=== PATIENT | female | born 1995 | race Two or more races ===

== ENCOUNTER 2018-12-24 01:31 | Inpatient (IN) | payer MEDICAID ==
[~2018-12-24] VITALS: Ht 167.6 cm; Wt 76.3 kg
[2018-12-24 02:32] LABS: Basophils # (auto) 0 uL; Basophils % (auto) 0.4 % (0.0-2.0); Eosinophils # (auto) 0 uL; Eosinophils % (auto) 0.6 % (0.0-7.0); Hematocrit 37.4 % (36.0-46.0); Hemoglobin 12.7 g/dL (12.2-16.2); Lymphocytes # (auto) 1.1 uL; Lymphocytes % (auto) 15.9 % (10.0-50.0); Mean Corpuscular Hemoglobin 30.3 pg (28.0-32.0); Monocytes # (auto) 0.4 uL; Monocytes % (auto) 5.4 % (0.0-12.0); Neutrophils # (auto) 5.5 uL; Neutrophils % (auto) 77.7 % (37.0-80.0); Platelet Count (auto) 229 10^3/uL (140-450); Red Cell Distribution Width 12.1 % (11.8-14.3)
[2018-12-24 02:48] LABS: Alanine Aminotransferase 14 U/L (13-56); Albumin 3.6 g/dL (3.4-5.0); Anion Gap 8 (5-15); Aspartate Aminotransferase 16 U/L (15-37); BUN/Creatinine Ratio 7.9; Blood Urea Nitrogen 6 mg/dL (7-18); Calcium 7.7 mg/dL (8.5-10.1); Carbon Dioxide 19 mmol/L (21-32); Chloride 109 mmol/L (98-107); GFR African American 120 mL/min; GFR Non-African American 99 mL/min; Glucose 104 mg/dL (74-106); Potassium 3.6 mmol/L (3.5-5.1); Sodium 136 mmol/L (136-145)
[2018-12-24 02:50] LABS: Alkaline Phosphatase 100 U/L (45-117); Bilirubin, Total 0.3 mg/dL (0.2-1.0); Total Protein 6.9 g/dL (6.4-8.2)
[2018-12-24] MEDS ORDERED: ONDANSETRON HCL 4 MG/2 ML VIAL IV PRN (05:15)
[2018-12-24] MEDS ORDERED: LORazepam 2MG/ML-1ML VIAL IV PRN (05:15)
[2018-12-24] MEDS ORDERED: TEMAZEPAM 15 MG CAP PO PRN (05:15)
[2018-12-24] MEDS ORDERED: ACETAMINOPHEN 500 MG TAB PO ONE (06:00)
[2018-12-24 08:41] LABS: Urine Bacteria FEW /hpf (None Seen); Urine Blood 1+ /uL (Negative); Urine Mucus FEW (None Seen); Urine Specific Gravity 1.006 (1.001-1.035); Urine WBC 3 /hpf (0 - 5)
--- NOTE | 2018-12-24 08:57 | NUR ---
MS admit from ER JOSS SPENCER admitted to [facility] after SBAR received. Patient oriented to primary RN, unit, room, bed, and unit policies regarding patient care and visiting hours. Patient weighed by bedscale and encouraged to call if they need something. All questions and concerns addressed, patient verbalized understanding.
[2018-12-24 09:00] VITALS: BP 109/69
[2018-12-24 09:06] LABS: Alcohol, Urine < 3.0 mg/dL (0-5); Amphetamine Screen, Urine NEGATIVE (NEGATIVE); Barbiturate Scree,Urine NEGATIVE (NEGATIVE); Benzodiazephine Screen, Urine NEGATIVE (NEGATIVE); Cannabinoid Screen, Urine POSITIVE (NEGATIVE); Cocaine Screen, Urine NEGATIVE (NEGATIVE); Opiate Scree,Urine POSITIVE (NEGATIVE); Phencyclidine Screen, Urine NEGATIVE (NEGATIVE)
[2018-12-24] MEDS: clonazePAM 0.5 MG TAB PO SCH ×2 (09:54→22:03)
[2018-12-24] MEDS: FAMOTIDINE 20 MG TAB PO SCH ×2 (09:54→22:02)
[2018-12-24] MEDS: PARoxetine 20 MG TAB PO SCH (09:54)
[2018-12-24] MEDS ORDERED: FLUoxetine HCL 20 MG CAP PO SCH (10:00)
[2018-12-24 13:00] VITALS: BP 99/58
--- NOTE | 2018-12-24 14:00 | NUR ---
Family member at bedside.
[2018-12-24] MEDS: ACETAMINOPHEN 325 MG TAB PO PRN (14:22)
[2018-12-24] MEDS ORDERED: LEVO25TA6 PO (14:26)
[2018-12-24] MEDS ORDERED: PAR20T GT (14:29)
[2018-12-24] MEDS ORDERED: QUET300T14 PO (14:29)
[2018-12-24] MEDS ORDERED: CLON2TAB PO (14:29)
[2018-12-24] MEDS ORDERED: CLON1TAB10 PO (14:29)
--- NOTE | 2018-12-24 15:30 | NUR ---
ELECTROENCEPHALOGRAM COMPLETED AT BEDSIDE. EVERETT SARAH NOTIFIED.
[2018-12-24] MEDS ORDERED: KETOROLAC TROMETH 30 MG/ML 1ML VIAL IV PRN (16:15)
[2018-12-24] MEDS: LIDOCAINE VISCOUS 2% 15ML UD MT PRN ×2 (16:37→22:40)
[2018-12-24 17:00] VITALS: BP 118/80
--- NOTE | 2018-12-24 19:44 | NUR ---
paged Cassy shine and left message in regards to home med Seroquel being discontinued.
--- NOTE | 2018-12-24 19:51 | NUR ---
BRYANNA return call placed order to continue home med seroquel 300mg po qhs. dose confirmed by patient and appears as such within external pharmacy record.
--- NOTE | 2018-12-24 20:00 | NUR ---
open note assumed care of pt. upon entering room pt awake, alert and oriented x4. pt on room air no distress noted or expressed. pt denies any pain at this time. pt bed rails padded rt seizure activity. pt updated on plan of care. no questions from pt at this time. pt bed locked, low and 2x rails up. call light in reach, will round on pt q1hr and prn.
[2018-12-24 22:00] VITALS: BP 123/77
[2018-12-24] MEDS ORDERED: QUEtiapine FUMARATE 100 MG TAB PO SCH ×2 (22:00)
[2018-12-24] MEDS: LACOSAMIDE 50 MG TAB PO SCH (22:03)
[2018-12-25 05:00] VITALS: BP 107/69
--- NOTE | 2018-12-25 08:00 | NUR ---
ASSESSMENT NOTE PATIENT IS ALERT ORIENTED X4, RESTING IN BED COMFORTABLY, NO DISTRESS NOTED, SIDE RAILS ARE PADDED, SELF REPOSITION NEEDED, FALL RISK PRECAUTIONS AT ALL TIMES, PATIENT CONTINUE TO HAVE RT SIDE TONGUE SWOLLEN DUE TO TONGUE BITE DURING THE SEIZURE, REFUSED LIDOCAINE AT THIS TIME, PAIN 10/12, CALL LIGHT WITHIN REACH
[2018-12-25] MEDS: FAMOTIDINE 20 MG TAB PO SCH (08:59)
[2018-12-25] MEDS: clonazePAM 0.5 MG TAB PO SCH (08:59)
[2018-12-25] MEDS: LACOSAMIDE 50 MG TAB PO SCH (08:59)
[2018-12-25 09:00] VITALS: BP 100/67
[2018-12-25] MEDS: PARoxetine 20 MG TAB PO SCH (09:00)
--- NOTE | 2018-12-25 09:00 | NUR ---
PATIENT CONTINUE STABLE, NO SEIZURE ACTIVITY NOTED, STATED < I NEVER HAD A SEIZURE BEFORE>, EDUCATION GIVEN TO PT REGARDING SEIZURE OF COMPLYING TO TAKE HER MEDICATIONS ON TIME, AND NEVER SKIP IT, AND KEEP HER ALL APPOINTMENT WITH HER NEUROLOGIST AND PRIMARY MD
[2018-12-25] MEDS: ACETAMINOPHEN 325 MG TAB PO PRN (09:07)
--- NOTE | 2018-12-25 10:24 | NUR ---
OUT TO MRI VIA WHEELCHAIR, NO DISTRESS NOTED.
--- NOTE | 2018-12-25 10:29 | NUR ---
assessment Patient is a 23 year old female who is alert and oriented. Patients cognitive abilities are intact. Prior to admission patient lived home with family and functioned independently. Patient informed me she is able to care for her own ADLs. Per patient she will return home to her prior living arrangements post discharge and family will transport her home. Patients PCP is Dr Carmichael in [place]. Patient informed me this was her first seizure. Patient may benefit from home health safety and medication management on discharge. Patient will return home with her parents. Patient has good family support. I informed patient she has a right to speak to a long term care social worker regarding all care. I informed patient she has a right to participate in any and all discharge planning. Patient does not have a POA and advanced directive. I have offered patient information on POA and advanced directives. I informed the patient the advantages and benefits of having an Advanced Directive. Patient verbalized understanding and agreed to discharge plan. Addendum: 12/26/18 at 1035 by Sujata SILVERMAN Amended: Links added.
--- NOTE | 2018-12-25 10:50 | NUR ---
PT IS BACK TO HER ROOM, NO DISTRESS NOTED
[2018-12-25 13:00] VITALS: BP 123/78
--- NOTE | 2018-12-25 14:46 | NUR ---
D/C Planning Per SS consult for home health safety evaluation and resources for cannabinoid support programs. Pt mother Ave was at bedside when information was given to Pt regarding home health and support programs. Pt refused service for home health and resources. Informed EVERETT Zepeda.
--- NOTE | 2018-12-25 15:02 | NUR ---
BRAZER ASSEMBLER AT BED SIDE, PATIENT DID REFUSES ALL THE HELP RESOURCES OFFERED TO HER, PATIENT MOM AT BED SIDE AWARE
--- NOTE | 2018-12-25 15:10 | NUR ---
DR LORA AT BED SIDE FOLLOWING UP ON PT WITH DISCHARGE HOME INSTRUCTION, PT VERBALIS UNDERSTANDING, PT'S MOM AWARE AT BED SIDE
[2018-12-25] MEDS ORDERED: LACO50TA2 PO ×2 (15:14→15:15)
--- NOTE | 2018-12-25 15:20 | NUR ---
DR LORA CALLED IN PT RX TO HER [facility]
--- NOTE | 2018-12-25 16:15 | NUR ---
FAMILY PATIENT'S BROTHER AT BED SIDE
--- NOTE | 2018-12-25 16:40 | NUR ---
DISCHARGE INSTRUCTION GIVEN TO PT, MADE AWARE TO OBTAIN A REFERRAL AND FOLLOW UP WITH DR ZAVALA IN 3 MONTH, ENCOURAGE PT TO CABIN SERVICE AGENT HER EDUCATIONS FROM JACK CRUZ
--- NOTE | 2018-12-25 16:41 | NUR ---
Discharge instructions given as ordered. Encourage to follow up with PMD as instructed. All questions and concerns addressed. Patient verbalized understanding. Medication reconciliation form completed and copy given to patient. IV removed with catheter intact, pressure dressing applied, Patient refused to be wheeled out with the wheelchair stated i will walk with my brother, with all personal belongings, accompanied by staff and family member. No distress noted at time of departure.
== END 2018-12-25 16:41 | disposition home or self-care (01) | DRG 53 ==
LOC: EDBD 01:31 → ER 01:35 → OVERFLOW 01:36 → CENTRAL 09:04
PROVIDERS: ADMIT Nurse Practitioner; ATTEND Hospitalist
DX: G40.909 Epilepsy, unspecified, not intractable, without status epilepticus (principal); F20.9 Schizophrenia, unspecified; F31.9 Bipolar disorder, unspecified; Z83.3 Family history of diabetes mellitus; Z88.8 Allergy status to other drugs, medicaments and biological substances; Z79.899 Other long term (current) drug therapy
CPT/HCPCS: 36415; 70450; 70551; 72125; 80053; 80307; 81001; 81025; 85025; 95819; G0378

== ENCOUNTER 2020-06-03 16:04 | Emergency (ER) | payer MEDICAID ==
[~2020-06-03] VITALS: Ht 165.1 cm; Wt 74.8 kg
[~2020-06-03 16:04] MED LIST: CLON1TAB10 PO; CLON2TAB PO; LACO50TA2 PO; LEVO25TA6 PO; PAR20T GT; QUET300T14 PO
[2020-06-03 16:39] VITALS: BP 128/89
[2020-06-03] MEDS ORDERED: LIDOCAINE 1% HCL (LOCAL ANESTH.) INJ 20ML MDV IJ ONE (17:00)
== END 2020-06-03 18:05 | disposition home or self-care (01) ==
LOC: ER 16:04
DX: S91.115A Laceration without foreign body of left lesser toe(s) without damage to nail, initial encounter (principal); W22.8XXA Striking against or struck by other objects, initial encounter; Y93.89 Activity, other specified; Y92.89 Other specified places as the place of occurrence of the external cause; Y99.8 Other external cause status
CPT/HCPCS: 12002; 73660; 99283; J2001

== ENCOUNTER 2020-08-20 01:23 | Emergency (ER) | payer MEDICAID ==
[~2020-08-20] VITALS: Ht 167.6 cm; Wt 77.1 kg
[2020-08-20] MEDS ORDERED: SODIUM CHLORIDE 0.9% 1,000 ML IV ONE (02:00)
[2020-08-20 02:26] LABS: Basophils # (auto) 0.1 10 ^3/uL (0-0.2); Basophils % (auto) 0.5 % (0.0-2.0); Eosinophils # (auto) 0 10 ^3/uL (0-0.8); Eosinophils % (auto) 0.3 % (0.0-7.0); Hematocrit 32.3 % (36.0-46.0); Hemoglobin 11.3 g/dL (12.2-16.2); Lymphocytes # (auto) 1.5 10 ^3/uL (0.4-5.4); Lymphocytes % (auto) 14.5 % (10.0-50.0); Mean Corpuscular Hemoglobin 30.9 pg (28.0-32.0); Mean Corpuscular Hgb Conc. 34.8 g/dL (32.0-36.0); Mean Corpuscular Volume 88.7 fL (80.0-100.0); Monocytes # (auto) 0.5 10 ^3/uL (0-1.3); Monocytes % (auto) 4.5 % (0.0-12.0); Neutrophils # (auto) 8.5 10 ^3/uL (1.6-8.6); Neutrophils % (auto) 80.2 % (37.0-80.0); Nucleated Red Blood Cells % 0.1 %; Platelet Count (auto) 235 10^3/uL (140-450); Red Blood Cells 3.64 10^6/uL (4.0-5.20); Red Cell Distribution Width 12.9 % (11.8-14.3); White Blood Cell 10.6 10^3/uL (4.4-10.8)
[2020-08-20 02:42] LABS: Alanine Aminotransferase 30 U/L (13-56); Anion Gap 9 (5-15); Aspartate Aminotransferase 22 U/L (15-37); BUN/Creatinine Ratio 13.3; Blood Alcohol < 3.0 mg/dL (0-5); Blood Urea Nitrogen 6 mg/dL (7-18); Calcium 7.8 mg/dL (8.5-10.1); Carbon Dioxide 21 mmol/L (21-32); Chloride 109 mmol/L (98-107); GFR African American 217 mL/min; GFR Non-African American 179 mL/min; Glucose 98 mg/dL (74-106); Magnesium 1.9 mg/dL (1.6-2.6); Potassium 3.5 mmol/L (3.5-5.1); Salicylate < 1.7 mg/dL (2.8-20.0); Sodium 139 mmol/L (136-145)
[2020-08-20 02:44] LABS: Acetaminophen < 2.0 ug/mL (10-30); Alkaline Phosphatase 83 U/L (45-117); Bilirubin, Total 0.2 mg/dL (0.2-1.0); Total Protein 6.5 g/dL (6.4-8.2)
[2020-08-20 10:38] LABS: Basophils # (auto) 0 10 ^3/uL (0-0.2); Basophils % (auto) 0.3 % (0.0-2.0); Eosinophils # (auto) 0 10 ^3/uL (0-0.8); Eosinophils % (auto) 0.5 % (0.0-7.0); Hemoglobin 11.7 g/dL (12.2-16.2); Lymphocytes # (auto) 1.3 10 ^3/uL (0.4-5.4); Lymphocytes % (auto) 11.7 % (10.0-50.0); Mean Corpuscular Hemoglobin 30.8 pg (28.0-32.0); Mean Corpuscular Hgb Conc. 34.4 g/dL (32.0-36.0); Mean Corpuscular Volume 89.7 fL (80.0-100.0); Monocytes # (auto) 0.4 10 ^3/uL (0-1.3); Monocytes % (auto) 3.9 % (0.0-12.0); Neutrophils % (auto) 83.6 % (37.0-80.0); Nucleated Red Blood Cells % 0.1 %; Platelet Count (auto) 216 10^3/uL (140-450); Red Blood Cells 3.79 10^6/uL (4.0-5.20); Red Cell Distribution Width 12.8 % (11.8-14.3); White Blood Cell 10.7 10^3/uL (4.4-10.8)
[2020-08-20 11:18] LABS: Potassium 3.6 mmol/L (3.5-5.1)
[2020-08-20 11:47] LABS: Urine Bacteria NONE SEEN /hpf (None Seen); Urine Blood Negative /uL (Negative); Urine Specific Gravity 1.006 (1.001-1.035); Urine WBC <1 /hpf (0 - 5)
[2020-08-20] MEDS ORDERED: FLUMAZENIL 0.1 MG/ML INJ 10ML MDV IV ONE (12:00)
[2020-08-20 12:15] LABS: Albumin 3.1 g/dL (3.4-5.0); BUN/Creatinine Ratio 7.3; Bilirubin, Total 0.2 mg/dL (0.2-1.0); Calcium 8.1 mg/dL (8.5-10.1); Total Protein 5.9 g/dL (6.4-8.2)
[2020-08-20 13:12] LABS: Alcohol, Urine < 3.0 mg/dL (0-10); Amphetamine Screen, Urine NEGATIVE (NEGATIVE); Barbiturate Scree,Urine NEGATIVE (NEGATIVE); Benzodiazephine Screen, Urine POSITIVE (NEGATIVE); Cannabinoid Screen, Urine NEGATIVE (NEGATIVE); Cocaine Screen, Urine NEGATIVE (NEGATIVE); Opiate Scree,Urine NEGATIVE (NEGATIVE); Phencyclidine Screen, Urine NEGATIVE (NEGATIVE)
[2020-08-20] MEDS ORDERED: ACETAMINOPHEN 325 MG TAB PO ONE (22:00)
[2020-08-21] MEDS ORDERED: QUEtiapine FUMARATE 100 MG TAB PO SCH (18:00)
[2020-08-21] MEDS: FOLIC ACID 1 MG TAB PO SCH (22:00)
[2020-08-22] MEDS ORDERED: LEVOTHYROXINE SODIUM 25 MCG TAB PO SCH (10:00)
[2020-08-22] MEDS ORDERED: PRENATAL VITAMIN TAB PO SCH (10:00)
[2020-08-22] MEDS ORDERED: levETIRAcetam 500 MG TAB PO SCH (10:00)
[2020-08-22] MEDS: FOLIC ACID 1 MG TAB PO SCH (11:03)
[2020-08-22 14:00] VITALS: BP 109/71
== END 2020-08-22 14:29 | disposition short-term general hospital (02) ==
LOC: EDBD 01:23 → ER 01:23 → EEVIPCON 01:23 → ER 08-22 14:29
DX: O99.341 Other mental disorders complicating pregnancy, first trimester (principal); O9A.211 Injury, poisoning and certain other consequences of external causes complicating pregnancy, first trimester; T43.592A Poisoning by other antipsychotics and neuroleptics, intentional self-harm, initial encounter; F32.9 Major depressive disorder, single episode, unspecified; Z3A.10 10 weeks gestation of pregnancy; Z86.69 Personal history of other diseases of the nervous system and sense organs; Z20.822 Contact with and (suspected) exposure to COVID-19; X83.8XXA Intentional self-harm by other specified means, initial encounter; Y92.89 Other specified places as the place of occurrence of the external cause; Y93.89 Activity, other specified; Y99.8 Other external cause status
CPT/HCPCS: 36415; 76801; 80053; 80307; 80320; 80329; 81001; 82962; 83735; 84443; 84702; 85025; 87426; 93005; 96361; 96374; 99285; J7030

== ENCOUNTER → 2020-12-08 02:04 | Observation (INO) | payer MEDICAID, OTHER ==
[~2020-12-08] VITALS: Ht 167.6 cm; Wt 89.4 kg
[~2020-12-08 02:04] MED LIST changes: +CLON-853 PO; -CLON1TAB10 PO; +LEVE500T32 PO; +PREN1TAB22 PO
[2020-12-08 02:05] VITALS: BP 119/79
== END | disposition home or self-care (01) ==
LOC: LDRP 12-07 23:56 → UNDOADMOB 12-07 23:56 → LDRP 01:41 → EDSTATUS 02:05 → ER 02:09 → EDSTATUS 12:00
PROVIDERS: ADMIT Obstetrics & Gynecology; ATTEND Internal Medicine
DX: O99.891 Other specified diseases and conditions complicating pregnancy (principal); M54.9 Dorsalgia, unspecified; M79.672 Pain in left foot; M79.671 Pain in right foot; H53.9 Unspecified visual disturbance; O21.2 Late vomiting of pregnancy; O26.892 Other specified pregnancy related conditions, second trimester; R51.9 Headache, unspecified; R60.0 Localized edema; R06.02 Shortness of breath; O99.282 Endocrine, nutritional and metabolic diseases complicating pregnancy, second trimester; E03.9 Hypothyroidism, unspecified; O99.352 Diseases of the nervous system complicating pregnancy, second trimester; G40.909 Epilepsy, unspecified, not intractable, without status epilepticus; O99.342 Other mental disorders complicating pregnancy, second trimester; F25.0 Schizoaffective disorder, bipolar type; Z91.040 Latex allergy status; Z3A.26 26 weeks gestation of pregnancy
CPT/HCPCS: 59025; 81002; 94760; G0378

== ENCOUNTER 2020-12-08 02:05 | Emergency (ER) | payer MEDICAID | END 2020-12-08 04:56 | disposition left against medical advice (07) | LOC: ER 02:05 | DX: M54.9 Dorsalgia, unspecified (principal); Z53.21 Procedure and treatment not carried out due to patient leaving prior to being seen by health care provider ==